=== PATIENT | female | born 1945 | race Caucasian/White ===

== ENCOUNTER 2018-02-12 01:22 | Emergency (ER) | payer OTHER ==
--- NOTE | 2018-02-12 01:50 | ER ---
Nurse's Notes [facility] Name: Jennifer Torres Age: 72 yrs Sex: Female : 1945 Arrival Date: 02/12/2018 Time: 01:26 Bed 27 Private MD: Joel Oviedo Diagnosis: Urinary tract infection, site not specified Presentation: 02/12 01:35 Presenting complaint: Patient states: she was taking Augmentin for a UTI for 5 days and aa1 has completed her medication but is still having symptoms. C/O vaginal itching, pressure and pain with urination. Transition of care: patient was not received from another setting of care. Onset of symptoms was February 06, 2018. Risk Assessment: Do you want to hurt yourself or someone else? Patient reports no desire to harm self or others. Initial Sepsis Screen: Does the patient meet any 2 criteria? No. Patient's initial sepsis screen is negative. Does the patient have a suspected source of infection? Yes: Dysuria/Frequency/Urgency/UTI. Care prior to arrival: None. 01:35 Method Of Arrival: Ambulatory aa1 01:35 Acuity: JIE 3 aa1 Historical: - Allergies: 01:48 Sulfa (Sulfonamide Antibiotics); aa1 - Home Meds: 01:48 metformin 500 mg Oral tab 1 tab 2 times per day [Active]; metoprolol tartrate 100 mg aa1 Oral tab 1 tab once daily [Active]; losartan 25 mg oral tab 1 tab once daily [Active]; Crestor 10 mg oral tab 1 tab once daily [Active]; oxybutynin chloride 5 mg Oral tr24 1 tab once daily [Active]; Victoza 2-Brian 0.6 mg/0.1 mL (18 mg/3 mL) subcutaneous pnij [Active]; aspirin 81 mg Oral TbEC 1 tab once daily [Active]; - PMHx: 01:48 Diabetes - IDDM; Hypertension; High Cholesterol; aa1 - PSHx: 01:48 Cholecystectomy; Hysterectomy; aa1 - Immunization history:: Flu vaccine is up to date. - Social history:: Smoking status: Patient/guardian denies using tobacco. - Ebola Screening: : No symptoms or risks identified at this time. Screenin:06 Abuse screen: Denies threats or abuse. Nutritional screening: No deficits noted. eb1 Tuberculosis screening: No symptoms or risk factors identified. Fall Risk None identified. Assessment: 02:04 General: Appears uncomfortable, Behavior is calm, cooperative, appropriate for age. eb1 Pain: Denies pain. Neuro: No deficits noted. Cardiovascular: No deficits noted. Respiratory: No deficits noted. GI: No deficits noted. : Reports urgency, vaginal itching. Vital Signs: 01:35 BP 138 / 86; Pulse 84; Resp 18; Temp 97.6; Pulse Ox 95% on R/A; Weight 79.38 kg; Height aa1 5 ft. 5 in. (165.10 cm); Pain 10; 01:35 Body Mass Index 29.12 (79.38 kg, 165.10 cm) aa1 ED Course: 01:26 Patient arrived in ED. es 01:26 Joel Oviedo MD is Private Physician. es 01:35 Arm band placed on right wrist. Patient placed in an exam room, on a stretcher. aa1 01:44 Bashir Hernandez MD is Attending Physician. tw4 01:45 Triage completed. aa1 01:46 Joel Oviedo MD is Referral Physician. tw4 02:14 No provider procedures requiring assistance completed. Patient did not have IV access eb1 during this emergency room visit. 02:15 Patient has correct armband on for positive identification. eb1 Administered Medications: No medications were administered Outcome: 01:50 Discharge ordered by . tw4 02:14 Discharged to home ambulatory, with family. eb1 02:14 Condition: stable 02:14 Discharge instructions given to patient, family, Instructed on discharge instructions, follow up and referral plans. medication usage, Demonstrated understanding of instructions, follow-up care, medications, Prescriptions given X 2. 02:15 Patient left the ED. eb1 Signatures: Jade Brooks, RN RN aa1 Brittanie Mckenzie Terrence, MD MD tw4 Elena Rico RN RN eb1
[2018-02-12 10:10] LABS: Urine Blood TRACE (NEG); Urine Glucose NEGATIVE (NEG); Urine Protein NEGATIVE (NEG)
--- NOTE | 2018-02-13 02:15 | EDPHYS ---
Physician Documentation [facility] Name: Jennifer Torres Age: 72 yrs Sex: Female : 1945 Arrival Date: 02/12/2018 Time: 01:26 Bed 27 Private MD: Joel Oviedo ED Physician Bashir Hernandez HPI: 02/12 05:34 This 72 yrs old Female presents to ER via Ambulatory with complaints of tw4 Vaginal Itching. 05:34 The patient presents with pelvic pain. Onset: The symptoms/episode began/occurred tw4 today. Modifying factors: The symptoms are alleviated by nothing, the symptoms are aggravated by nothing. Associated signs and symptoms: The patient has no apparent associated signs or symptoms. Severity of symptoms: At their worst the symptoms were moderate. The patient has not experienced similar symptoms in the past. Historical: - Allergies: 01:48 Sulfa (Sulfonamide Antibiotics); aa1 - Home Meds: 01:48 metformin 500 mg Oral tab 1 tab 2 times per day [Active]; metoprolol tartrate 100 mg aa1 Oral tab 1 tab once daily [Active]; losartan 25 mg oral tab 1 tab once daily [Active]; Crestor 10 mg oral tab 1 tab once daily [Active]; oxybutynin chloride 5 mg Oral tr24 1 tab once daily [Active]; Victoza 2-Brian 0.6 mg/0.1 mL (18 mg/3 mL) subcutaneous pnij [Active]; aspirin 81 mg Oral TbEC 1 tab once daily [Active]; - PMHx: 01:48 Diabetes - IDDM; Hypertension; High Cholesterol; aa1 - PSHx: 01:48 Cholecystectomy; Hysterectomy; aa1 - Immunization history:: Flu vaccine is up to date. - Social history:: Smoking status: Patient/guardian denies using tobacco. - Ebola Screening: : No symptoms or risks identified at this time. ROS: 05:34 Positive for urinary frequency, burning with urination, difficulty urinating. tw4 05:34 Constitutional: Negative for fever, chills, and weight loss, Cardiovascular: Negative for chest pain, palpitations, and edema, Respiratory: Negative for shortness of breath, cough, wheezing, and pleuritic chest pain, Abdomen/GI: Negative for abdominal pain, nausea, vomiting, diarrhea, and constipation, Back: Negative for injury and pain. Exam: 05:34 Constitutional: This is a well developed, well nourished patient who is awake, alert, tw4 and in no acute distress. Head/Face: Normocephalic, atraumatic. Chest/axilla: Normal chest wall appearance and motion. Nontender with no deformity. No lesions are appreciated. Cardiovascular: Regular rate and rhythm with a normal S1 and S2. No gallops, murmurs, or rubs. Normal PMI, no JVD. No pulse deficits. Respiratory: Lungs have equal breath sounds bilaterally, clear to auscultation and percussion. No rales, rhonchi or wheezes noted. No increased work of breathing, no retractions or nasal flaring. 05:34 Back: No spinal tenderness. No costovertebral tenderness. Full range of motion. MS/ Extremity: Pulses equal, no cyanosis. Neurovascular intact. Full, normal range of motion. Neuro: Awake and alert, GCS 15, oriented to person, place, time, and situation. Cranial nerves II-XII grossly intact. Motor strength 5/5 in all extremities. Sensory grossly intact. Cerebellar exam normal. Normal gait. 05:34 Abdomen/GI: Inspection: abdomen appears normal, Bowel sounds: normal, Palpation: mild abdominal tenderness, in the suprapubic area. Vital Signs: 01:35 BP 138 / 86; Pulse 84; Resp 18; Temp 97.6; Pulse Ox 95% on R/A; Weight 79.38 kg; Height aa1 5 ft. 5 in. (165.10 cm); Pain 4/10; 01:35 Body Mass Index 29.12 (79.38 kg, 165.10 cm) aa1 MDM: 01:44 Patient medically screened. tw4 Administered Medications: No medications were administered Disposition: 02/12/18 01:50 Discharged to Home. Impression: Urinary tract infection, site not specified. - Condition is Stable. - Discharge Instructions: Urinary Tract Infection. - Prescriptions for Pyridium 200 mg Oral Tablet - take 1 tablet by ORAL route every 8 hours for 3 days; 9 tablet. Macrobid 100 mg Oral Capsule - take 1 capsule by ORAL route every 12 hours for 10 days; 20 capsule. - Medication Reconciliation Form, Thank You Letter, Antibiotic Education, Prescription Opioid Use form. - Follow up: Joel Oviedo MD; When: As needed; Reason: Recheck today's complaints, Continuance of care, Re-evaluation by your physician. - Problem is an ongoing problem. - Symptoms are unchanged. Signatures: Jade Brooks RN RN aa1 Bashir Hernandez MD MD tw4 Elena Rico RN RN eb1 Corrections: (The following items were deleted from the chart) 02:15 01:50 02/12/2018 01:50 Discharged to Home. Impression: Urinary tract infection, site eb1 not specified. Condition is Stable. Forms are Medication Reconciliation Form, Thank You Letter, Antibiotic Education, Prescription Opioid Use. Follow up: Joel Oviedo; When: As needed; Reason: Recheck today's complaints, Continuance of care, Re-evaluation by your physician. Problem is an ongoing problem. Symptoms are unchanged. tw4
== END 2018-02-12 02:15 | disposition home or self-care (01) ==
LOC: ER 01:22
DX: N39.0 Urinary tract infection, site not specified (principal); E11.9 Type 2 diabetes mellitus without complications; I10 Essential (primary) hypertension; E78.00 Pure hypercholesterolemia, unspecified; Z88.2 Allergy status to sulfonamides
CPT/HCPCS: 81003; 99282

== ENCOUNTER 2019-08-04 11:44 | Emergency (ER) | payer OTHER ==
[2019-08-04 12:50] LABS: Absolute Lymphocytes (CBC) 1.7 K/uL (0.7-4.9); Basophils % 0.3 % (0-1.3); Hematocrit 37.1 % (36.0-45.0); Lymphocytes % 20.4 % (15.3-44.8); MPV 7.4 fL (7.6-11.3)
[2019-08-04 12:52] LABS: Protime INR 0.94
[2019-08-04] MEDS ORDERED: ONDANSETRON 4 MG/2 ML VIAL ONE (12:52)
[2019-08-04] MEDS ORDERED: MORPHINE 2 MG/ML SYR ONE ×3 (12:52→15:40)
[2019-08-04 12:53] LABS: Urine Amorphous Sediment 2+ /HPF (NONE SEEN); Urine Bacteria <20 /HPF (<20); Urine Culture Reflex Order NOT NEEDED; Urine RBC <5 /HPF (NONE SEEN)
[2019-08-04] MEDS ORDERED: NA CHLORIDE 0.9% 500 ML ONE (13:07)
[2019-08-04 13:09] LABS: ALT/SGPT 21 U/L (12-78); AST/SGOT 18 U/L (15-37); Albumin 3.8 g/dL (3.4-5.0); Alkaline Phosphatase 59 U/L (45-117); BUN Blood Urea Nitrogen 14 mg/dL (7-18); Bicarbonate 27 mmol/L (21-32); Bilirubin Direct 0.2 mg/dL (0-0.2); Bilirubin Total 0.7 mg/dL (0.2-1.0); Glucose Level 104 mg/dL (74-106); Lipase 177 U/L (73-393); Magnesium 1.8 mg/dL (1.8-2.4); NT PRO-BNP 68 pg/mL (<125); Potassium 4.1 mmol/L (3.5-5.1); Protein, Total 7.1 g/dL (6.4-8.2); Sodium Level 136 mmol/L (136-145); Troponin (Emerg Dept Use Only) < 0.02 ng/mL (0.0-0.045)
[2019-08-04 14:19] LABS: Urine Blood NEGATIVE (NEG); Urine Glucose NEGATIVE (NEG); Urine Protein NEGATIVE (NEG); Urine pH 8.5 (5.0-7.0)
--- NOTE | 2019-08-04 14:32 | RAD REPORT ---
EXAM DESCRIPTION: CT - Abdomen Pelvis W Contrast - 08/04/2019 2:23 pm CLINICAL HISTORY: ABD PAINabdominal pain, epigastric pain COMPARISON: None. TECHNIQUE: Biphasic, helical CT imaging of the abdomen and pelvis was performed following 100 ml non -ionic IV contrast. No oral contrast administered. All CT scans are performed using dose optimization technique as appropriate and may include automated exposure control or mA/KV adjustment according to patient size. FINDINGS: No suspicious findings in the lung bases. The liver, spleen, and pancreas show no suspicious findings. Cholecystectomy clips are present. No bi liary tree dilatation. Size of the biliary tree is normal for a post cholecystectomy patient. Symmetric renal function is seen with no hydronephrosis or suspicious renal mass. No pyelonephritis o r acute parenchymal process. No bladder abnormalities. No adrenal abnormalities. No gastric wall thickening or edema. No acute gastric finding seen. Duodenal diverticulum is evident. No duodenal wall thickening or edema confirmed. Small to moderate size hiatal hernia is present with no acute component suspected. Remainder the small bowel is unremarkable. No appendicitis findings. No acute colon process. No free air, free fluid or inflammatory stranding. No hernia, mass or bulky lymphadenopathy. No suspicious bony findings. IMPRESSION: No obstruction, free air or surgically emergent finding identified. No acute stomach, duodenum or pancreatic abnormality seen. Duodenal diverticulum is present. Mild muc osal level inflammatory or also give changes can be occult to CT imaging. Status post cholecystectomy. Size of the biliary tree is not outside of normal range for post cholecy stectomy status.
--- NOTE | 2019-08-04 14:42 | RAD REPORT ---
EXAM DESCRIPTION: RAD - Chest Single View - 08/04/2019 1:13 pm CLINICAL HISTORY: Epigastric pain, over chest pain COMPARISON: September 2018 TECHNIQUE: AP portable chest image was obtained 1245 hours . FINDINGS: No focal lung parenchymal process. Interstitial pattern matches the comparison. Pattern is accentuated by shallow inspiration. Heart and vasculature are normal. No measurable pleural effusion and no pneumothorax. No acute bony abnormality seen. No acute aortic findings suspected. IMPRESSION: No acute cardiopulmonary process.
--- NOTE | 2019-08-04 16:08 | ER ---
Nurse's Notes [facility] Name: Jennifer Torres Age: 73 yrs Sex: Female : 1945 Arrival Date: 08/04/2019 Time: 11:47 Bed 17 Private MD: Joel Oviedo Diagnosis: Unspecified abdominal pain Presentation: 08/04 11:49 Presenting complaint: Patient states: epigastric pain, "feels like gas and then it runs sv up and I have a sharp pain in my chest (points to the right chest wall" started at 0530 today. Transition of care: patient was not received from another setting of care. Onset of symptoms was August 04, 2019. Risk Assessment: Do you want to hurt yourself or someone else? Patient reports no desire to harm self or others. 11:49 Method Of Arrival: Ambulatory sv 11:49 Acuity: JIE 3 sv 12:11 Initial Sepsis Screen: Does the patient meet any 2 criteria? No. Patient's initial em sepsis screen is negative. Does the patient have a suspected source of infection? No. Patient's initial sepsis screen is negative. Historical: - Allergies: 11:50 Sulfa (Sulfonamide Antibiotics); sv - PMHx: 11:50 Diabetes - IDDM; High Cholesterol; Hypertension; sv - PSHx: 11:50 Cholecystectomy; Hysterectomy; sv - Immunization history:: Adult Immunizations up to date. - Social history:: Smoking status: Patient/guardian denies using tobacco. - Ebola Screening: : Patient negative for fever greater than or equal to 101.5 degrees Fahrenheit, and additional compatible Ebola Virus Disease symptoms Patient denies exposure to infectious person Patient denies travel to an Ebola-affected area in the 21 days before illness onset No symptoms or risks identified at this time. Screenin:10 Abuse screen: Denies threats or abuse. Nutritional screening: No deficits noted. em Tuberculosis screening: No symptoms or risk factors identified. Fall Risk None identified. Assessment: 12:59 General: Appears in no apparent distress. comfortable, Behavior is calm, cooperative, em Denies fever. Pain: Complains of pain in epigastric area Pain currently is 3 out of 10 on a pain scale. at worst was 9 out of 10 on a pain scale. Pain began 0600 this morning. Neuro: Level of Consciousness is awake, alert, obeys commands, Oriented to person, place, time, situation, Appropriate for age. Cardiovascular: Capillary refill < 3 seconds Patient's skin is warm and dry. Chest pain is denied. Respiratory: Airway is patent Respiratory effort is even, unlabored, Respiratory pattern is regular, symmetrical. GI: Abdomen is flat, Bowel sounds present X 4 quads. Abd is soft X 4 quads Abdomen is tender to palpation in epigastric area Patient currently denies nausea, vomiting. : Denies burning with urination. Derm: Skin is intact, is healthy with good turgor, Skin is pink, warm \\T\\ dry. Musculoskeletal: Capillary refill < 3 seconds, Range of motion: intact in all extremities. 13:00 Reassessment: pain became worse after taking x-ray, also reports wanting to throw up, em provider notified. 13:36 Reassessment: Patient appears in no apparent distress at this time. Patient and/or em family updated on plan of care and expected duration. Pain level reassessed. Patient is alert, oriented x 3, equal unlabored respirations, skin warm/dry/pink. rates pain 3/10 Patient states feeling better. Patient states symptoms have improved. 14:48 Reassessment: Patient appears in no apparent distress at this time. Patient and/or em family updated on plan of care and expected duration. Pain level reassessed. Patient is alert, oriented x 3, equal unlabored respirations, skin warm/dry/pink. Patient states feeling better. Patient states symptoms have improved. 15:30 Reassessment: Patient appears in no apparent distress at this time. Patient and/or em family updated on plan of care and expected duration. Pain level reassessed. reports pain has come back, provider notified. Vital Signs: 11:50 BP 185 / 67; Pulse 73; Resp 20; Temp 98(O); Pulse Ox 98% ; Weight 80.74 kg; Height 5 sv ft. 4 in. (162.56 cm); Pain 7/10; 12:20 BP 134 / 59; Pulse 78; Resp 18; Pulse Ox 99% on R/A; Pain 8/10; em 13:30 BP 142 / 66; Pulse 64; Resp 18; Pulse Ox 95% on R/A; Pain 3/10; em 14:16 BP 147 / 66; Pulse 62; Resp 18; Pulse Ox 94% ; mh5 15:04 BP 132 / 60; Pulse 66; Resp 23; Temp 98.2(O); Pulse Ox 98% on R/A; lt1 16:00 BP 116 / 62; Pulse 72; Resp 18; Pulse Ox 99% on R/A; Pain 8/10; em 11:50 Body Mass Index 30.55 (80.74 kg, 162.56 cm) sv ED Course: 11:47 Patient arrived in ED. mr 11:47 Joel Oviedo MD is Private Physician. mr 11:50 Triage completed. sv 11:53 Arm band placed on. sv 11:56 Mauricio Hubbard, STORMY is PHCP. pm1 11:56 Sean Parra MD is Attending Physician. pm1 12:01 Vincenzo Nick LVN is Primary Nurse. em 12:10 Patient has correct armband on for positive identification. Placed in gown. Bed in low em position. Call light in reach. Side rails up X2. Adult w/ patient. Pulse ox on. NIBP on. 12:40 Initial lab(s) drawn, by me, sent to lab. Inserted saline lock: 22 gauge in right em antecubital area, using aseptic technique. Blood collected. 13:14 XRAY Chest (1 view) In Process Unspecified. EDMS 14:22 CT completed. Patient tolerated procedure well. Patient moved back from CT. mw3 14:24 CT Abd/Pelvis - IV Contrast Only In Process Unspecified. EDMS 16:36 No provider procedures requiring assistance completed. IV discontinued, intact, em bleeding controlled, No redness/swelling at site. Pressure dressing applied. Administered Medications: 12:55 Drug: Zofran 4 mg Route: IVP; Site: right antecubital; iw 13:21 Follow up: Response: No adverse reaction; Nausea is decreased em 12:55 Drug: NS 0.9% 500 ml Route: IV; Rate: bolus; Site: right antecubital; iw 13:30 Follow up: IV Status: Completed infusion; IV Intake: 500ml em 12:58 Drug: morphine 2 mg Route: IVP; Site: right antecubital; iw 13:21 Follow up: Response: No adverse reaction; Pain is unchanged, physician notified em 13:22 Drug: morphine 2 mg Route: IVP; Site: right antecubital; em 13:34 Follow up: Response: No adverse reaction; Marked relief of symptoms; Pain is decreased em 15:45 Drug: morphine 2 mg Route: IVP; Site: right antecubital; em 16:00 Follow up: Response: No adverse reaction; Pain is unchanged, physician notified em 16:06 CANCELLED (Physician Discretion): Pepcid 10 mg PO once pm1 16:33 Drug: GI Cocktail without - (Maalox Suspension 30 ml, Lidocaine Liquid 2 % 15 em ml) Route: PO; 16:42 Follow up: Response: No adverse reaction em 16:35 Drug: Pepcid 20 mg Route: IVP; Site: right antecubital; iw 16:46 Follow up: Response: No adverse reaction em Intake: 13:30 IV: 500ml; Total: 500ml. em Outcome: 16:06 Discharge ordered by MD. pm1 16:36 Discharged to home ambulatory, with family. em 16:36 Condition: good 16:36 Discharge instructions given to patient, family, Instructed on discharge instructions, follow up and referral plans. medication usage, Demonstrated understanding of instructions, follow-up care, medications, Prescriptions given X 3. 16:47 Patient left the ED. em Signatures: Dispatcher [employer] Elise Prather RN RN sv Rivera, Mary mr Vincenzo Nick, CLINICAL REHAB SPECIALIST CLINICAL REHAB SPECIALIST em Joanne Lin RN RN iw Marinas, Patrick, AUTOCAD OPERATOR AUTOCAD OPERATOR pm1 Margaret Hutton 5 Ava To mw3 Sydney, Zakiya lt1 Corrections: (The following items were deleted from the chart) 11:53 11:50 BP 185 / 67; Pulse 73bpm; Resp 20bpm; Pulse Ox 98%; Temp 98F Oral; sv sv
--- NOTE | 2019-08-04 16:08 | EDPHYS ---
Physician Documentation [facility] Name: Jennifer Torres Age: 73 yrs Sex: Female : 1945 Arrival Date: 08/04/2019 Time: 11:47 Bed 17 Private MD: Joel Oviedo ED Physician Sean Parra HPI: 08/04 12:13 This 73 yrs old Female presents to ER via Ambulatory with complaints of pm1 Abdominal Pain. 12:13 The patient presents with abdominal pain in the epigastric area. pm1 12:13 Onset: The symptoms/episode began/occurred today, at 05:30. Associated signs and pm1 symptoms: Pertinent negatives: nausea, vomiting, and diarrhea, chest pain, dysuria, fever, shortness of breath. The symptoms are described as achy. Modifying factors: The symptoms are alleviated by nothing, the symptoms are aggravated by nothing. Severity of pain: in the emergency department the pain has improved is a 4 / 10. It is unknown whether or not the patient has recently seen a physician. Patient reports pain initially present in suprapubic area. Then pain present in epigastric area with radiation to right breast area. Historical: - Allergies: 11:50 Sulfa (Sulfonamide Antibiotics); sv - PMHx: 11:50 Diabetes - IDDM; High Cholesterol; Hypertension; sv - PSHx: 11:50 Cholecystectomy; Hysterectomy; sv - Immunization history:: Adult Immunizations up to date. - Social history:: Smoking status: Patient/guardian denies using tobacco. - Ebola Screening: : Patient negative for fever greater than or equal to 101.5 degrees Fahrenheit, and additional compatible Ebola Virus Disease symptoms Patient denies exposure to infectious person Patient denies travel to an Ebola-affected area in the 21 days before illness onset No symptoms or risks identified at this time. ROS: 12:13 Constitutional: Negative for fever, chills, and weight loss, Eyes: Negative for injury, pm1 pain, redness, and discharge, ENT: Negative for injury, pain, and discharge, Neck: Negative for injury, pain, and swelling, Cardiovascular: Negative for chest pain, palpitations, and edema, Respiratory: Negative for shortness of breath, cough, wheezing, and pleuritic chest pain. 12:13 Back: Negative for injury and pain, : Negative for injury, bleeding, discharge, and swelling, MS/Extremity: Negative for injury and deformity, Skin: Negative for injury, rash, and discoloration, Neuro: Negative for headache, weakness, numbness, tingling, and seizure. 12:13 Abdomen/GI: Positive for abdominal pain, Negative for nausea, vomiting, and diarrhea, constipation. Exam: 12:13 Constitutional: This is a well developed, well nourished patient who is awake, alert, pm1 and in no acute distress. Head/Face: Normocephalic, atraumatic. Neck: Trachea midline, no thyromegaly or masses palpated, and no cervical lymphadenopathy. Supple, full range of motion without nuchal rigidity, or vertebral point tenderness. No Meningismus. Chest/axilla: Normal chest wall appearance and motion. Nontender with no deformity. No lesions are appreciated. Cardiovascular: Regular rate and rhythm with a normal S1 and S2. No gallops, murmurs, or rubs. Normal PMI, no JVD. No pulse deficits. Respiratory: Lungs have equal breath sounds bilaterally, clear to auscultation and percussion. No rales, rhonchi or wheezes noted. No increased work of breathing, no retractions or nasal flaring. 12:13 Back: No spinal tenderness. No costovertebral tenderness. Full range of motion. Skin: Warm, dry with normal turgor. Normal color with no rashes, no lesions, and no evidence of cellulitis. MS/ Extremity: Pulses equal, no cyanosis. Neurovascular intact. Full, normal range of motion. 12:13 Abdomen/GI: Inspection: abdomen appears normal, Bowel sounds: normal, Palpation: soft, mild abdominal tenderness, in the epigastric area, mass, is not appreciated, rebound tenderness, is not appreciated, Indicators: McBurney's point is not tender, Lee's sign is negative, Rovsing's sign is negative. 12:13 Neuro: Orientation: is normal, Motor: is normal, moves all fours. Vital Signs: 11:50 BP 185 / 67; Pulse 73; Resp 20; Temp 98(O); Pulse Ox 98% ; Weight 80.74 kg; Height 5 sv ft. 4 in. (162.56 cm); Pain 7/10; 12:20 BP 134 / 59; Pulse 78; Resp 18; Pulse Ox 99% on R/A; Pain 8/10; em 13:30 BP 142 / 66; Pulse 64; Resp 18; Pulse Ox 95% on R/A; Pain 3/10; em 14:16 BP 147 / 66; Pulse 62; Resp 18; Pulse Ox 94% ; mh5 15:04 BP 132 / 60; Pulse 66; Resp 23; Temp 98.2(O); Pulse Ox 98% on R/A; lt1 16:00 BP 116 / 62; Pulse 72; Resp 18; Pulse Ox 99% on R/A; Pain 8/10; em 11:50 Body Mass Index 30.55 (80.74 kg, 162.56 cm) sv MDM: 11:56 Patient medically screened. pm1 12:14 ED course: Patient refused pain medications. pm1 16:06 Data reviewed: vital signs. Data interpreted: Pulse oximetry: on room air is 98 %. pm1 Interpretation: normal. Counseling: I had a detailed discussion with the patient and/or guardian regarding: the historical points, exam findings, and any diagnostic results supporting the discharge/admit diagnosis, lab results, radiology results, the need for outpatient follow up, to return to the emergency department if symptoms worsen or persist or if there are any questions or concerns that arise at home. 08/04 12:13 Order name: Basic Metabolic Panel; Complete Time: 13:33 pm1 08/04 12:13 Order name: CBC with Diff; Complete Time: 13:33 pm1 08/04 12:13 Order name: LFT's; Complete Time: 13:33 pm1 08/04 12:13 Order name: Magnesium; Complete Time: 13:33 pm1 08/04 12:13 Order name: NT PRO-BNP; Complete Time: 13:33 pm1 08/04 12:13 Order name: PT-INR; Complete Time: 13:33 pm1 08/04 12:13 Order name: Troponin (emerg Dept Use Only); Complete Time: 13:33 pm1 08/04 12:13 Order name: XRAY Chest (1 view); Complete Time: 15:25 pm1 08/04 12:13 Order name: Lipase; Complete Time: 13:33 pm1 08/04 12:13 Order name: CT Abd/Pelvis - IV Contrast Only; Complete Time: 15:25 pm1 08/04 12:13 Order name: Urine Microscopic Only; Complete Time: 13:33 pm1 08/04 14:00 Order name: Urine Dipstick--Ancillary (enter results); Complete Time: 15:25 ms 08/04 12:13 Order name: EKG; Complete Time: 12:14 pm1 08/04 12:13 Order name: Cardiac monitoring; Complete Time: 13:16 pm1 08/04 12:13 Order name: EKG - Nurse/Tech; Complete Time: 13:16 pm1 08/04 12:13 Order name: IV Saline Lock; Complete Time: 13:16 pm1 08/04 12:13 Order name: Labs collected and sent; Complete Time: 13:16 pm1 08/04 12:13 Order name: O2 Per Protocol; Complete Time: 13:16 pm1 08/04 12:13 Order name: O2 Sat Monitoring; Complete Time: 13:16 pm1 08/04 12:13 Order name: Urine Dipstick-Ancillary (obtain specimen); Complete Time: 13:16 pm1 Administered Medications: 12:55 Drug: Zofran 4 mg Route: IVP; Site: right antecubital; iw 13:21 Follow up: Response: No adverse reaction; Nausea is decreased em 12:55 Drug: NS 0.9% 500 ml Route: IV; Rate: bolus; Site: right antecubital; iw 13:30 Follow up: IV Status: Completed infusion; IV Intake: 500ml em 12:58 Drug: morphine 2 mg Route: IVP; Site: right antecubital; iw 13:21 Follow up: Response: No adverse reaction; Pain is unchanged, physician notified em 13:22 Drug: morphine 2 mg Route: IVP; Site: right antecubital; em 13:34 Follow up: Response: No adverse reaction; Marked relief of symptoms; Pain is decreased em 15:45 Drug: morphine 2 mg Route: IVP; Site: right antecubital; em 16:00 Follow up: Response: No adverse reaction; Pain is unchanged, physician notified em 16:06 CANCELLED (Physician Discretion): Pepcid 10 mg PO once pm1 16:33 Drug: GI Cocktail without - (Maalox Suspension 30 ml, Lidocaine Liquid 2 % 15 em ml) Route: PO; 16:42 Follow up: Response: No adverse reaction em 16:35 Drug: Pepcid 20 mg Route: IVP; Site: right antecubital; iw 16:46 Follow up: Response: No adverse reaction em Disposition: 08/05 07:26 Co-signature as Attending Physician, Sean Parra MD I agree with the assessment and kdr plan of care. Disposition: 08/04/19 16:06 Discharged to Home. Impression: Unspecified abdominal pain. - Condition is Stable. - Discharge Instructions: Abdominal Pain, Adult. - Prescriptions for Tylenol- Codeine #3 300-30 mg Oral Tablet - take 2 tablets by ORAL route every 6 hours As needed; 20 tablet. Zofran 4 mg Oral Tablet - take 1 tablet by ORAL route every 12 hours As needed; 20 tablet. Bentyl 20 mg Oral Tablet - take 1 tablet by ORAL route every 6 hours As needed; 20 tablet. - Medication Reconciliation Form, Thank You Letter, Antibiotic Education, Prescription Opioid Use form. - Follow up: Emergency Department; When: As needed; Reason: Worsening of condition. Follow up: Private Physician; When: 2 - 3 days; Reason: Recheck today's complaints, Continuance of care, Re-evaluation by your physician. - Problem is new. - Symptoms have improved. Signatures: Dispatcher [employer] Elise Prather RN RN sv Rittger, Kevin, MD MD [facility] Vincenzo Nick, OPERATIONS PLANT ATTENDANT OPERATIONS PLANT ATTENDANT em Joanne Lin RN RN iw Mauricio Hubbard, STORMY SITE LEADER pm1 Corrections: (The following items were deleted from the chart) 08/04 16:06 16:05 Pepcid 10 mg PO once ordered. pm1 pm1 16:47 16:06 08/04/2019 16:06 Discharged to Home. Impression: Unspecified abdominal pain. em Condition is Stable. Forms are Medication Reconciliation Form, Thank You Letter, Antibiotic Education, Prescription Opioid Use. Follow up: Emergency Department; When: As needed; Reason: Worsening of condition. Follow up: Private Physician; When: 2 - 3 days; Reason: Recheck today's complaints, Continuance of care, Re-evaluation by your physician. Problem is new. Symptoms have improved. pm1
[2019-08-04] MEDS ORDERED: LIDOCAINE VISCOUS 2% SOLN 15 ML UDC ONE (16:14)
[2019-08-04] MEDS ORDERED: MAGNE/ALUM HYDROXD 30 ML UCUP ONE (16:14)
[2019-08-04] MEDS ORDERED: FAMOTIDINE 20 MG/2 ML VIAL IV ONE (16:15)
[2019-08-04 19:18] VITALS: TEMP 98.2
[2019-08-04 19:19] VITALS: BP 116/62; O2SAT 99
--- NOTE | 2019-08-05 09:36 | EKG ---
Test Date: 2019-08-04 Test Time: 12:14:47 Market Consultant: MANGO MEASUREMENT RESULTS: Intervals: Rate: 65 NE: 184 QRSD: 98 QT: 412 QTc: 428 [place]: P: 56 NE: 184 QRS: 13 T: 53 INTERPRETIVE STATEMENTS: Normal sinus rhythm Incomplete right bundle branch block Borderline ECG No previous ECG available for comparison Electronically Signed On 08-05-19 09:35:43 POOLROOM TABLE ATTENDANT by Juan A Bronson
== END 2019-08-04 16:47 | disposition home or self-care (01) ==
LOC: ER 11:44
DX: R10.13 Epigastric pain (principal); I10 Essential (primary) hypertension; Z88.2 Allergy status to sulfonamides
CPT/HCPCS: 96361; 93005; 85025; 80048; 36415; 83735; 85610; 80076; 84484; 83690; 83880; 74177; 71045; 96375; 96374; 99284; Q9967; J2270 ×3; J7040; J2405; 81003; 81015